=== PATIENT | female | born 1965 | race Two or more races ===

== ENCOUNTER 2017-04-17 14:13 | Emergency (ER) | payer OTHER ==
[~2017-04-17] VITALS: Ht 157.5 cm; Wt 68.0 kg
[~2017-04-17 14:13] MED LIST: BYSTOLIC10 MG; JENTADUETO 2.51 EAC2 PO; METFORMIN HCL1000 MG; NAPROXEN SODIU550 M1 PO; NEXIUM2.5 MG PO; PREVACID30 MG
[2017-04-17] MEDS ORDERED: PROZAC10 MG (14:36)
== END 2017-04-17 18:27 | disposition home or self-care (01) ==
LOC: ER 14:13
DX: K11.20 Sialoadenitis, unspecified (principal)

== ENCOUNTER 2018-07-13 16:35 | Emergency (ER) | payer OTHER ==
[~2018-07-13] VITALS: Ht 162.6 cm; Wt 72.6 kg
[~2018-07-13 16:35] MED LIST changes: +PROZAC10 MG
== END 2018-07-13 18:51 | disposition home or self-care (01) ==
LOC: ER 16:35
DX: S00.83XA Contusion of other part of head, initial encounter (principal); W18.39XA Other fall on same level, initial encounter; Y93.89 Activity, other specified; Y92.89 Other specified places as the place of occurrence of the external cause; Y99.8 Other external cause status; E16.1 Other hypoglycemia

== ENCOUNTER → 2018-08-14 | Outpatient (CLI) | payer OTHER | END | disposition home or self-care (01) | LOC: SONOGRAMA 14:31 | DX: D25.1 Intramural leiomyoma of uterus (principal) ==

== ENCOUNTER 2018-09-19 07:06 | Outpatient (CLI) | payer OTHER | END 2018-09-19 07:13 | disposition home or self-care (01) | LOC: NUCLEAR 07:06 | DX: I11.9 Hypertensive heart disease without heart failure (principal) | CPT/HCPCS: 78452; 93017; A9500 ==

== ENCOUNTER 2018-10-21 09:58 | Outpatient (CLI) | payer OTHER | END 2018-10-21 10:09 | disposition home or self-care (01) | LOC: SONOGRAMA 09:58 | DX: N84.0 Polyp of corpus uteri (principal) ==

== ENCOUNTER 2019-05-07 10:44 | Outpatient (CLI) | payer OTHER | END 2019-05-07 11:06 | disposition home or self-care (01) | LOC: NUCLEAR 10:44 | DX: M81.0 Age-related osteoporosis without current pathological fracture (principal) ==

== ENCOUNTER 2024-05-12 08:57 | Inpatient (IN) | payer OTHER ==
[~2024-05-12] VITALS: Ht 165.1 cm; Wt 73.5 kg
[2024-05-12] MEDS ORDERED: TOPROL XL25 M1 PO (09:22)
[2024-05-12] MEDS ORDERED: GLIMEPIRIDE2 M1 PO (09:22)
[2024-05-12] MEDS ORDERED: LOSARTAN POTASS25 MG PO (09:23)
[2024-05-12] MEDS ORDERED: OZEMPIC0.25 MG/02 (09:24)
[2024-05-12] MEDS ORDERED: CLINDAMYCIN PHOSPHATE 600 MG in 0.9 % SODIUM CHLORIDE 50 ML IV STA (10:13)
[2024-05-12] MEDS ORDERED: CLINDAMYCIN PHOSPHATE 150 MG/ML (300mg) ONE (10:35)
[2024-05-12 11:20] LABS: HEMOGLOBIN 13.7 g/dL (12.0-15.00); MEAN CORPUSCULAR HEMOGLOBIN 29.8 pg (27.00-32.0); MEAN CORPUSCULAR HGB CONC 34.2 g/dl (32.0-36.0); PLATELET COUNT 338 K/uL (150-450); RED CELL DISTRIBUTION WIDTH 14.4 % (11.5-14.5)
[2024-05-12 12:28] LABS: CALCIUM 10.5 mg/dL (8.5-10.1); CREATININE SERUM 0.62 mg/dL (0.55-1.02); GFR 99.21
[2024-05-12 12:29] LABS: POTASSIUM 4.69 mEq/L (3.5-5.1)
[2024-05-12 13:23] LABS: URINE APPEARANCE Cloudy; URINE BILIRRUBIN Negative (NEGATIVE); URINE BLOOD Negative; URINE COLOR Yellow; URINE KETONE Trace (NEGATIVE); URINE LEUKOCYTE Small; URINE NITRATE Positive; URINE PROTEIN Negative (NEGATIVE)
[2024-05-12 13:31] LABS: URINE EPITHELIAL CELLS 24.2 uL (0.0-38.8); URINE RBC 424.8 uL (0.0-20.8); URINE WBC 123.3 uL (0.0-23.2)
[2024-05-12 13:45] LABS: URINE BACTERIA > 9821.5 uL (0.0-1933); URINE GLUCOSE >=1000 MG/DL (NEGATIVE)
[2024-05-12] MEDS ORDERED: 0.9 % SODIUM CHLORIDE 1,000 ML IV SCH (17:15)
[2024-05-12] MEDS ORDERED: ACETAMINOPHEN 500 MG GEL..CAP PO PRN (17:30)
[2024-05-12] MEDS ORDERED: INSULIN LISPRO 1,000 UNIT/10 ML UNITS SUBCUTANEO PRN (17:30)
[2024-05-12] MEDS ORDERED: DEXTROSE 50 % IN WATER 0.5 G/ML DISP.SYRIN IV PRN (17:30)
[2024-05-12] MEDS ORDERED: MEROPENEM 500 MG in 0.9 % SODIUM CHLORIDE 50 ML IV SCH (18:00)
[2024-05-12 18:50] LABS: PROTHROMBIN TIME 10.9 SECONDS (9.0-11.5)
[2024-05-12 20:34] VITALS: BP 139/84
[2024-05-13 01:50] VITALS: BP 125/78
[2024-05-13] MEDS ORDERED: ENOXAPARIN SODIUM 40 MG/0.4 ML SYRINGE SUBCUTANEO SCH (09:00)
[2024-05-13] MEDS ORDERED: LOSARTAN POTASSIUM 25 MG TABLET PO SCH (09:00)
[2024-05-13] MEDS ORDERED: METOPROLOL SUCCINATE 25 MG TAB.SR.24H PO SCH (09:00)
[2024-05-13] MEDS ORDERED: FAMOTIDINE/PF 20 MG in 0.9 % SODIUM CHLORIDE 8 ML IV PUSH SCH (09:00)
[2024-05-13 09:42] VITALS: BP 156/85
[2024-05-13] MEDS ORDERED: FLUCONAZOLE IN NACL,ISO-OSM 400 MG/200 ML PIGGYBAG IV NR (14:30)
[2024-05-13 17:38] VITALS: BP 142/75; O2SAT 98
[2024-05-14 03:25] VITALS: BP 121/58
[2024-05-14 09:03] VITALS: BP 148/83
[2024-05-14] MEDS ORDERED: FLUCONAZOLE IN NACL,ISO-OSM 100 ML IV SCH (12:00)
[2024-05-14] MEDS ORDERED: CIPROFLOXACIN IN 5 % DEXTROSE 200 ML IV SCH (17:00)
[2024-05-14 18:41] VITALS: BP 137/92
[2024-05-14] MEDS ORDERED: FAMOtidine 20 MG TABLET PO SCH (21:00)
[2024-05-15 03:16] VITALS: BP 132/77; O2SAT 99
[2024-05-15 09:26] VITALS: BP 105/63; O2SAT 98
== END 2024-05-15 13:05 | disposition home or self-care (01) | DRG 690 ==
LOC: ER 08:59 → MEDJ 17:40
PROVIDERS: General Practice; ADMIT Internal Medicine; ATTEND Internal Medicine
PROC: BT4JZZZ Ultrasonography of Kidneys and Bladder (ICD-10-PCS; principal; 2024-05-12)
DX: N39.0 Urinary tract infection, site not specified (principal); B96.20 Unspecified Escherichia coli [E. coli] as the cause of diseases classified elsewhere; E11.9 Type 2 diabetes mellitus without complications; Z79.4 Long term (current) use of insulin; I10 Essential (primary) hypertension